=== PATIENT | female | born 2000 | race Caucasian/White ===

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

== ENCOUNTER 2022-04-25 17:40 | Outpatient (CLI) | payer BC, MEDICAID ==
[~2022-04-25] VITALS: Ht 157.5 cm; Wt 69.4 kg
--- NOTE | 2022-04-25 17:47 | NUR ---
174- patient to labor room 3 via wheelchair with spouse. Patient is complianing of "a lot of pressure" in her abdomen and back at this time, no report of leaking of fluid or bleeding, does report a lot of discharge today. Patient assisted to restroom and into gown. EFM and toco on and tracing.
[2022-04-25 18:30] VITALS: BP 115/67; PULSE 86; TEMP 97.8
--- NOTE | 2022-04-25 18:30 | NUR ---
1829- BEDSIDE REPORT RECEIVED, CARE ASSUMED. IV TO LEFT HAND, LR INFUSING. 1834- SVE BY THIS NURSE IS CLOSED THICK AND HIGH. NO POOLING, BLEEDING, OR DISCHARGE. 1920- DR ASHFORD CALLED CHARTED. ORDERS RECEIVED. 1929- PT OFF MONITORS FOR DISMISSAL. 1934- PRESCRIPTION CALLED TO PHARMACIST AT [facility] REQEUSTED BY PT. 1950- IV SITE DC'D WITH [facility]A INTACT. DISMISSAL INSTRUCTIONS GIVEN AND PT VERBALIZES UNDERSTANDING. PT SIGNS PAPERWORK. PT DISMISSED TO HOME ACCOMPANIED BY SPOUSE.
[2022-04-25 18:59] LABS: COLLECTION METHOD CLEAN CATCH
[2022-04-25 19:00] VITALS: BP 119/68; PULSE 90
[2022-04-25 19:06] LABS: MUCOUS Present (NOT PRESENT); URINE APPEARANCE Hazy (CLEAR/HAZY); URINE BACTERIA Rare /hpf (NONE SEEN); URINE BLOOD Negative (NEGATIVE); URINE COLOR Yellow (YELLOW); URINE GLUCOSE Negative (NEGATIVE); URINE KETONE Negative (NEGATIVE); URINE NITRATE Negative (NEGATIVE); URINE PROTEIN(semi-quant) Negative (NEGATIVE); URINE RBC 0-2 /hpf (0-2); URINE UROBILINOGEN 0.2 E.U/dL (0.2-1.0)
== END 2022-04-25 19:51 | disposition home or self-care (01) ==
LOC: LDRO 17:40
PROVIDERS: Obstetrics & Gynecology
DX: O26.893 Other specified pregnancy related conditions, third trimester (principal); R10.9 Unspecified abdominal pain; M54.9 Dorsalgia, unspecified; Z3A.29 29 weeks gestation of pregnancy
CPT/HCPCS: J7120

== ENCOUNTER 2022-07-19 09:48 | Emergency (ER) | payer MEDICAID ==
[~2022-07-19] VITALS: Ht 154.9 cm; Wt 68.2 kg
[~2022-07-19 09:48] MED LIST: IBU800 M1 PO; MACROBID 1100 MG/CAP PO; ZOFRAN 4MG T4 MG/TAB PO
[2022-07-19 09:54] VITALS: BP 121/76
[2022-07-19 11:05] LABS: COLLECTION METHOD CLEAN CATCH
[2022-07-19 11:35] LABS: MUCOUS Present (NOT PRESENT); URINE BACTERIA None Seen /hpf (NONE SEEN); URINE RBC 20-50 /hpf (0-2); URINE WBC >50 /hpf (0-2)
[2022-07-19 11:37] LABS: PH 6.5 (5.0-8.5); URINE APPEARANCE Hazy (CLEAR/HAZY); URINE BLOOD 2+ (NEGATIVE); URINE COLOR Yellow (YELLOW); URINE GLUCOSE Negative (NEGATIVE); URINE KETONE Negative (NEGATIVE); URINE NITRATE Negative (NEGATIVE); URINE PROTEIN(semi-quant) TRACE (NEGATIVE); URINE UROBILINOGEN 0.2 E.U/dL (0.2-1.0)
[2022-07-19 11:41] LABS: STREP SCREEN NEGATIVE
[2022-07-19] MEDS ORDERED: MACROBID 1100 MG/CAP PO (11:58)
[2022-07-19] MEDS ORDERED: TAMIFLU 75MG75 MG PO (11:58)
[2022-07-19] MEDS ORDERED: ZOFRAN ODT4 MG PO (12:00)
[2022-07-19 12:11] VITALS: PULSE 116; TEMP 101.1
== END 2022-07-19 12:14 | disposition home or self-care (01) ==
LOC: COL.ER 09:48
PROVIDERS: Emergency Medicine
DX: O99.53 Diseases of the respiratory system complicating the puerperium (principal); J10.1 Influenza due to other identified influenza virus with other respiratory manifestations; O86.20 Urinary tract infection following delivery, unspecified; N39.0 Urinary tract infection, site not specified; Z20.822 Contact with and (suspected) exposure to COVID-19

== ENCOUNTER 2024-05-21 15:47 | Outpatient (CLI) | payer OTHER, MEDICAID ==
[~2024-05-21] VITALS: Ht 154.9 cm; Wt 75.0 kg
[~2024-05-21 15:47] MED LIST changes: +TAMIFLU 75MG75 MG PO; +ZOFRAN ODT4 MG PO
--- NOTE | 2024-05-21 15:55 | NUR ---
PATIENT AMBULATORY TO UNIT WITH FATHER, PATIENT ORIENTED TO LABOR ROOM 4 AND ASSISTED INTO A GOWN. PAITENT ASISSTED TO BED, EFM AND TOCO PLACED AND TRACING. JERADTENT COMPAINS OF A HEADACHE, FEELING NAUSEOUS THIS AFTERNOON AROUND 1400 AND GOING TO THE BATHROOM WHERE SHE "PASSED OUT" BUT WAS ABLE TO CATCH HERSELF AND DID NOT HIT HER STOMACH. PATIENT HAS CONTINUED TO HAVE A HEADACHE. PATIENT DENIES LEAKING OF FLUID, VAGINAL BLEEDING OR CONTRACTIONS AND REPORTS GOOD MOVEMENT. ASSESSMENTS COMPLETED.
[2024-05-21 16:15] VITALS: BP 116/69; PULSE 96
[2024-05-21 16:45] VITALS: BP 118/77; PULSE 101; TEMP 98
[2024-05-21] MEDS ORDERED: LR 1,000 ML IV PRN (16:45)
[2024-05-21] MEDS ORDERED: Acetaminophen 500 MG TAB PO ONE (16:45)
[2024-05-21 17:05] LABS: BASO % 0.2 % (0.0-2.0); EOS # 0.1 K/mm3 (0.0-0.7); EOS % 0.8 % (0.0-4.0); GRAN # 7.6 K/mm3 (1.4-6.5); GRAN % 72.5 % (42.2-75.2); LYMPH % 19.3 % (20.0-51.0); MEAN CELL VOLUME 82 fl (80.0-100.0); MEAN CORPUSCULAR HEMOGLOBIN 26 pg (27-31); MEAN CORPUSCULAR HGB CONC 32 g/dl (33.0-37.0); MEAN PLATELET VOLUME 12.5 fl (7.4-10.4); MONO # 0.7 K/mm3 (0.1-0.6); MONO % 6.5 % (1.7-9.3); PLATELET COUNT 155 K/mm3 (130-400); RED BLOOD COUNT 4.21 M/mm3 (4.10-5.30); REDCELL DISTRIBUTION WIDTH-CV 12.6 % (11.5-14.5)
[2024-05-21 17:12] LABS: HEMATOCRIT 34.3 % (37.0-47.0)
[2024-05-21 17:15] VITALS: BP 115/73; PULSE 85
[2024-05-21 17:26] LABS: ALBUMIN 2.3 g/dL (3.5-5.0); BILIRUBIN,TOTAL 0.1 mg/dL (0.2-1.2); CALCIUM 7.9 mg/dL (8.4-10.2); CREATININE, serum 0.58 mg/dL (0.57-1.11); POTASSIUM 3.3 mEq/L (3.5-4.5); TOTAL PROTEIN 5.6 g/dl (6.2-8.1)
--- NOTE | 2024-05-21 17:38 | NUR ---
THIS RN ON PHONE WITH [facility] NURSE. RECORDS REQUEST NOT GOING THROUGH SO THIS RN [facility] FROM NURSE INTO ASSESSMENT.
[2024-05-21 17:45] VITALS: BP 118/70; PULSE 91
[2024-05-21 17:50] VITALS: PULSE 98
== END 2024-05-21 17:58 | disposition home or self-care (01) ==
LOC: LDRO 15:47
PROVIDERS: Obstetrics & Gynecology
DX: O26.893 Other specified pregnancy related conditions, third trimester (principal); R51.9 Headache, unspecified; Z3A.34 34 weeks gestation of pregnancy